=== PATIENT | male | born 1950 | race Caucasian/White ===

== ENCOUNTER 2016-09-10 11:06 | Inpatient (IN) ==
[2016-09-10] MEDS ORDERED: 0.9 % Sodium Chloride 1,000 ML IV ONE (11:30)
--- NOTE | 2016-09-10 11:33 | Emergency Department Note ---
Disposition Clinical Impression: Hyponatremia Disposition: Admitted As Inpatient Condition: Fair Referrals: Kelsi Spivey CNP [Primary Care Provider] - Forms: Work/School Release, ED Satisfaction Letter Time of Disposition: 13:40 General Adult HPI - General Chief complaint: ED General Medical Stated complaint: general illness Time Seen by Provider: 09/10/16 11:21 Source: EMS Limitations: no limitations Nursing Notes Reviewed: Yes Vital Signs Reviewed: Yes - History of Present Illness HPI Narrative: 66-year-old male brought to the ED with generalized weakness. This been ongoing for the past week. He states he cannot sleep. He is sleepy all the time. He has no appetite. He was recently started on a anti-diabetes medication but has not started it. No vomiting. He complains of mild headache. No focal numbness weakness Pain Scale: 5 - Related Data Home Medications Medication Instructions Recorded Confirmed Albuterol Sulfate [Ventolin Hfa] 18 gm IH DAILY 09/10/16 09/10/16 Atorvastatin [Lipitor] 40 mg PO HS 09/10/16 09/10/16 Ibuprofen [Motrin] 800 mg PO DAILY 09/10/16 09/10/16 Losartan/HCTZ [Hyzaar 50-12.5 1 each PO DAILY 09/10/16 09/10/16 Tablet] Metformin [Glucophage] 500 mg PO 0800 09/10/16 09/10/16 Pyridoxine HCl [Vitamin B-6] 50 mg PO HS 09/10/16 09/10/16 Allergies Allergy/AdvReac Type Severity Reaction Status Date / Time No Known Allergies Allergy Verified 09/10/16 11:18 All systems ED: reviewed and negative except as stated. Constitutional: Reports: weakness. Denies: fever, chills, weight change ENT ED: Denies: ear pain, throat pain, dental pain, hearing loss, epistaxis, congestion, dysphagia Cardiovascular: Denies: chest pain, palpitations, dyspnea on exertion, edema, syncope Respiratory: Denies: cough, dyspnea, wheezes, hemoptysis, stridor Gastrointestinal: Denies: abdominal pain, nausea, vomiting, diarrhea, constipation, hematemesis, melena, hematochezia Genitourinary: Denies: urgency, dysuria, frequency, hematuria Musculoskeletal: Denies: back pain, neck pain, arthralgia, myalgia Integumentary: Denies: rash, abrasion, lesions Neurological: Reports: headache, weakness Psychiatric: Reports: auditory hallucinations. Denies: anxiety, depression, suicidal thoughts, homicidal thoughts, visual hallucinations Endocrine: Reports: fatigue Allergic/Immunologic: Reports: itchy eyes Past Medical History - Past Medical History Medical history: Reports: COPD, coronary artery disease, diabetes, hyperlipidemia, hypertension - Social History Smoking Status: Current every day smoker Smokeless Tobacco Status: No Alcohol use: Reports: none Drug use: Reports: none Physical Exam - General Limitations: no limitations General appearance: alert, in no apparent distress - Eye Eye exam: Present: conjunctival injection - ENT ENT exam: other (Lesions in his tongue consistent with him biting it.) - Neck Neck exam: Present: normal inspection, full ROM, trachea midline - Respiratory Respiratory exam: Present: normal lung sounds bilaterally - Cardiovascular Cardiovascular exam: Present: regular rate, normal rhythm, normal heart sounds - Abdominal Exam Abdominal exam: Present: soft, Non-Tender. Absent: tenderness, distention, guarding, rebound, rigidity - Extremities Exam Extremities exam: Present: normal inspection, full ROM. Absent: tenderness, pedal edema - Neurological Exam Neurological exam: Present: alert - Psychiatric Psychiatric exam: Present: flat affect - Skin Skin exam: Present: warm, dry, intact, normal color Course Vital Signs Temperature 98.5 F 09/10/16 11:12 Pulse Rate 84 09/10/16 11:12 Respiratory Rate 18 09/10/16 11:12 Blood Pressure 164/73 09/10/16 11:12 O2 Sat by Pulse Oximetry 98 09/10/16 11:12 Temperature 98.5 F 09/10/16 11:12 Pulse Rate 84 09/10/16 11:12 Respiratory Rate 18 09/10/16 11:12 Blood Pressure 164/73 09/10/16 11:12 O2 Sat by Pulse Oximetry 98 09/10/16 11:12 Oxygen Delivery Oxygen Delivery Nasal Cannula Medical Decision Making - MDM Narrative Medical decision making narrative: Diagnosis. Hyponatremia. Dehydration. Tongue laceration ED course 0.9 normal saline was initiated. Viscous lidocaine was given for the tongue. Toradol 30 IV given. Unasyn initiated for possible tongue infection Patient will be admitted for observation to correct electrolyte abnormality. - Lab Data Result diagrams: 09/10/16 11:36 09/10/16 11:36 Lab Results 09/10/16 09/10/1617 Range/Units 11:36 11:36 11:36 WBC 11.3 H (4.3-11.1) K/mcL RBC 4.48 (4.19-5.50) M/mcL Hgb 14.4 (12.9-16.9) g/dL Hct 38.7 (37.5-50.1) % MCV 86.4 (83.0-100.0) fL MCH 32.1 (28.0-33.3) pg MCHC 37.2 H (31.6-35.5) g/dL RDW 11.9 (11.5-14.5) % Plt Count 212 (140-400) K/mcL MPV 8.7 L (9.4-12.4) fL Immature Gran % 0.4 (0-4) % Seg Neutrophils % 78.6 % Lymphocytes % 13.3 % Monocytes % 6.6 % Eosinophils % 0.8 % Basophils % 0.3 % Neutrophils # 8.9 (1.6-8.9) K/mcL Lymphocytes # 1.5 (0.6-4.6) K/mcL Monocytes # 0.8 (0.0-1.3) K/mcL Eosinophils # 0.1 (0.0-0.6) K/mcL Basophils # 0.0 (0.0-0.2) K/mcL PT 13.0 H (9.4-12.1) Seconds INR 1.2 APTT 29.2 (26.0-36.0) Seconds Sodium 118 L* (136-145) mEq/L Potassium 4.2 (3.5-4.5) mEq/L Chloride 86 L (98-109) mEq/L Carbon Dioxide 19 (19-29) mEq/L BUN 8 (8-26) mg/dL Creatinine 0.68 L (0.72-1.25) mg/dL Est GFR ( Amer) > 60 (> 60) Est GFR (Non-Af Amer) > 60 (> 60) BUN/Creatinine Ratio 12 (6-26) Glucose 121 H (70-99) mg/dL Calculated Osmolality 246 L (280-300) Calcium 8.9 (8.6-10.8) mg/dL Total Bilirubin 1.3 H (0.2-1.2) mg/dL Direct Bilirubin 0.6 H (0.0-0.5) mg/dL Indirect Bilirubin 0.7 (0.0-1.2) mg/dL AST 58 H (5-34) Units/L ALT 33 (0-55) Units/L Alkaline Phosphatase 118 (38-126) Units/L Troponin I (0-0.03) ng/mL B-Natriuretic Peptide (0-100) pg/mL Serum Total Protein 7.3 (6.0-8.3) g/dL Albumin 3.5 (3.5-5.0) g/dL Globulin 3.8 H (2.4-3.5) g/dL Albumin/Globulin Ratio 0.9 L (1.1-2.2) Ethyl Alcohol (0-10) mg/dL 09/10/16 09/10/16 09/10/16 Range/Units 11:36 11:36 11:36 WBC (4.3-11.1) K/mcL RBC (4.19-5.50) M/mcL Hgb (12.9-16.9) g/dL Hct (37.5-50.1) % MCV (83.0-100.0) fL MCH (28.0-33.3) pg MCHC (31.6-35.5) g/dL RDW (11.5-14.5) % Plt Count (140-400) K/mcL MPV (9.4-12.4) fL Immature Gran % (0-4) % Seg Neutrophils % % Lymphocytes % % Monocytes % % Eosinophils % % Basophils % % Neutrophils # (1.6-8.9) K/mcL Lymphocytes # (0.6-4.6) K/mcL Monocytes # (0.0-1.3) K/mcL Eosinophils # (0.0-0.6) K/mcL Basophils # (0.0-0.2) K/mcL PT (9.4-12.1) Seconds INR APTT (26.0-36.0) Seconds Sodium (136-145) mEq/L Potassium (3.5-4.5) mEq/L Chloride (98-109) mEq/L Carbon Dioxide (19-29) mEq/L BUN (8-26) mg/dL Creatinine (0.72-1.25) mg/dL Est GFR ( Amer) (> 60) Est GFR (Non-Af Amer) (> 60) BUN/Creatinine Ratio (6-26) Glucose (70-99) mg/dL Calculated Osmolality (280-300) Calcium (8.6-10.8) mg/dL Total Bilirubin (0.2-1.2) mg/dL Direct Bilirubin (0.0-0.5) mg/dL Indirect Bilirubin (0.0-1.2) mg/dL AST (5-34) Units/L ALT (0-55) Units/L Alkaline Phosphatase (38-126) Units/L Troponin I 0.01 (0-0.03) ng/mL B-Natriuretic Peptide 32 (0-100) pg/mL Serum Total Protein (6.0-8.3) g/dL Albumin (3.5-5.0) g/dL Globulin (2.4-3.5) g/dL Albumin/Globulin Ratio (1.1-2.2) Ethyl Alcohol < 10 (0-10) mg/dL
[2016-09-10 11:44] LABS: Basophils % 0.3 %; Eosinophils # 0.1 K/mcL (0.0-0.6); Eosinophils % 0.8 %; Hematocrit 38.7 % (37.5-50.1); Hemoglobin 14.4 g/dL (12.9-16.9); Immature Granulocytes % 0.4 % (0-4); Lymphocytes # 1.5 K/mcL (0.6-4.6); Lymphocytes % 13.3 %; Mean Corpuscular Hemoglobin 32.1 pg (28.0-33.3); Mean Corpuscular Volume 86.4 fL (83.0-100.0); Mean Platelet Volume 8.7 fL (9.4-12.4); Monocytes # 0.8 K/mcL (0.0-1.3); Monocytes % 6.6 %; Neutrophils # 8.9 K/mcL (1.6-8.9); Platelet Count 212 K/mcL (140-400); Red Blood Count 4.48 M/mcL (4.19-5.50); Red Cell Distribution Width 11.9 % (11.5-14.5); Segmented Neutrophils % 78.6 %
[2016-09-10 11:48] LABS: INR 1.2
[2016-09-10 11:51] LABS: Activated Partial Thrombo Time 29.2 Seconds (26.0-36.0)
[2016-09-10 11:59] LABS: Alanine Aminotransferase 33 Units/L (0-55); Albumin 3.5 g/dL (3.5-5.0); Albumin/Globulin Ratio 0.9 (1.1-2.2); Alkaline Phosphatase 118 Units/L (38-126); Aspartate Amino Transferase 58 Units/L (5-34); BUN/Creatinine Ratio 12 (6-26); Bilirubin,Direct 0.6 mg/dL (0.0-0.5); Bilirubin,Indirect 0.7 mg/dL (0.0-1.2); Bilirubin,Total 1.3 mg/dL (0.2-1.2); Blood Urea Nitrogen 8 mg/dL (8-26); Calcium 8.9 mg/dL (8.6-10.8); Carbon Dioxide 19 mEq/L (19-29); Chloride 86 mEq/L (98-109); Globulin 3.8 g/dL (2.4-3.5); Glucose 121 mg/dL (70-99); Osmolality,Calculated 246 (280-300); Potassium 4.2 mEq/L (3.5-4.5); Total Protein 7.3 g/dL (6.0-8.3); eGFR For African Americans > 60 (> 60); eGFR For Non-African Americans > 60 (> 60)
[2016-09-10 12:06] LABS: Mean Corpuscular HGB Conc 37.2 g/dL (31.6-35.5)
[2016-09-10 12:07] LABS: Sodium 118 mEq/L (136-145)
[2016-09-10] MEDS ORDERED: Lidocaine Viscous Oral Soln 15 ML SOLUTION MM STA ×2 (12:36→13:09)
[2016-09-10] MEDS ORDERED: Ketorolac 30 MG/ML VIAL IV STA ×2 (12:36→13:09)
[2016-09-10] MEDS ORDERED: Ampicillin/Sulbactam 3,000 MG in 0.9 % Sodium Chloride Mini Bag 100 ML IVPB ONE ×2 (12:36→13:09)
[2016-09-10] MEDS ORDERED: Lidocaine Viscous Oral Soln 15 ML SOLUTION MM PRN (12:43)
[2016-09-10] MEDS ORDERED: Albuterol 2.5 MG/3 ML NEBULIZER IH PRN (13:40)
--- NOTE | 2016-09-10 14:30 | Electrocardiograph Report ---
[address] [address] Test Date: 2016-09-10 Pat Name: Gorge Hadley Department: 2000 Room: 113 Gender: M [employer]: : 1950 Requested By: Shreyas Phan Order Number: [id number] Reading MD: Nick Murphy Measurements Intervals [place] Rate: 81 P: -50 ID: [id number] QRS: 90 QRSD: 88 T: 77 QT: 387 QTc: 424 Interpretive Statements ECTOPIC ATRIAL RHYTHM ABNORMAL RHYTHM ECG Electronically Signed On 09-10-2016 14:28:56 EST by Nick Murphy
--- NOTE | 2016-09-10 14:42 | Internal Med History&Physical ---
Date of Encounter: 09/10/16 Time of Encounter: 14:40 Assessment and Plan (1) Lesion of tongue Current visit: Yes Status: Acute (2) Hyponatremia Current visit: Yes Status: Acute (3) CHF (congestive heart failure) Current visit: Yes Status: Acute Qualifiers: Congestive heart failure type: unspecified congestive heart failure type Congestive heart failure chronicity: unspecified congestive heart failure chronicity Qualified Code(s): I50.9 - Heart failure, unspecified Internal Medicine - H&P: HPI Chief complaint: Patient presented with a chief complaint diastolic heart. States he bit it Admitted From: Emergency Dept Plans for Post Hospital Care: Home History of present illness: Mr. Hadley is a 66 year old male Patient states he has medical problems was recently given a prescription for diabetic control but has not started taking it yet. Patient denies seizures she had bit his tongue and has 2 lesions of the lateral aspects of his distal to Past Med Surg Social Fam HX - Past Medical History Medical history: CHF, COPD, coronary artery disease, diabetes, hyperlipidemia, hypertension - Social History Smoking Status: Current every day smoker Smokeless Tobacco Status: No Alcohol use: none Drug use: none Internal Medicine - H&P: Meds Albuterol Sulfate [Ventolin Hfa] 18 gm IH DAILY 09/10/16 [History] Atorvastatin [Lipitor] 40 mg PO HS 09/10/16 [History] Ibuprofen [Motrin] 800 mg PO DAILY 09/10/16 [History] Losartan/HCTZ [Hyzaar 50-12.5 Tablet] 1 each PO DAILY 09/10/16 [History] Metformin [Glucophage] 500 mg PO 0800 09/10/16 [History] Pyridoxine HCl [Vitamin B-6] 50 mg PO HS 09/10/16 [History] Allergies No Known Allergies Allergy (Verified 09/10/16 11:18) All Systems PM: A 10-system review of systems was performed and is negative for pertinent findings except as documented above in the HPI. - Constitutional Vitals: Temp Pulse Resp BP Pulse Ox 97.6 F 72 16 163/71 97 09/10/16 13:32 09/10/16 13:32 09/10/16 13:32 09/10/16 13:32 09/10/16 13:32 - Head Head exam: Present: atraumatic, normocephalic - Expanded ENT Exam Mouth exam: Present: tongue elevation (Patient has a 1 cm lesion on both lateral aspects of his anterior down. He states is very sore hard E and probably has not been taking his medication appropriately) - Respiratory Respiratory exam: Present: CTAB. Absent: accessory muscle use, rales, rhonchi, wheezes - Cardiovascular Cardiovascular exam: Present: RRR, +S1, +S2. Absent: diastolic murmur, gallop, rubs, systolic murmur - Expanded Lower Extremities Exam Lower Leg exam: Present: swelling (There is no pretibial edema at this time) Internal Med - H&P Results - Labs CBC & Chem 7: 09/10/16 11:36 09/10/16 11:36 Labs: Patient has a extremely low sodium. Right now fasting gas he could be dilutional
--- NOTE | 2016-09-10 14:49 | Internal Med Progress Note ---
Date of Encounter: 09/10/16 - Assessment and plan (1) Lesion of tongue Current Visit: Yes Status: Acute (2) Hyponatremia Current Visit: Yes Status: Acute (3) CHF (congestive heart failure) Current Visit: Yes Status: Acute Qualifiers: Congestive heart failure type: unspecified congestive heart failure type Congestive heart failure chronicity: unspecified congestive heart failure chronicity Qualified Code(s): I50.9 - Heart failure, unspecified - Constitutional Vitals: Temp Pulse Resp BP Pulse Ox 97.6 F 72 16 163/71 97 09/10/16 13:32 09/10/16 13:32 09/10/16 13:32 09/10/16 13:32 09/10/16 13:32 Internal Medicine: Result - Labs CBC & Chem 7: 09/10/16 11:36 09/10/16 11:36 - ABG Interpretation ABG results: PT/INR, D-dimer PT 13.0 Seconds (9.4-12.1) H 09/10/16 11:36 Consult Discharge Plan - Plan Referrals: Kelsi Spivey CNP [Primary Care Provider] -
[2016-09-10] MEDS: *HR* Metformin 500 MG TABLET PO SCH (15:33)
[2016-09-10] MEDS: Magic Mouthwash 10 ML UD Cup PO SCH ×2 (15:34→19:47)
[2016-09-10] MEDS: Losartan/HCTZ 50-12.5 TABLET PO SCH (15:34)
[2016-09-10] MEDS: 0.9 % Sodium Chloride 1,000 ML IVC SCH ×2 (15:35→23:00)
[2016-09-10] MEDS ORDERED: *HR* LORazepam 2 MG/ML VIAL IVP PRN (16:13)
[2016-09-10] MEDS ORDERED: *HR* Promethazine 25 MG/ML VIAL IVP PRN (16:13)
[2016-09-10] MEDS: Ibuprofen 400 MG TABLET PO PRN (19:50)
[2016-09-10] MEDS: Furosemide 20 MG TABLET PO SCH (19:50)
[2016-09-10] MEDS ORDERED: Ampicillin/Sulbactam 3,000 MG in 0.9 % Sodium Chloride Mini Bag 100 ML IVPB SCH (21:00)
[2016-09-10] MEDS: Ampicillin/Sulbactam 3,000 MG in 0.9 % Sodium Chloride Mini Bag 100 ML IVPB SCH (23:01)
[2016-09-11] MEDS: Nicotine 14 MG PATCH.TD24 TD SCH ×2 (00:36→08:18)
[2016-09-11 05:46] LABS: BUN/Creatinine Ratio 9 (6-26); Blood Urea Nitrogen 6 mg/dL (8-26); Calcium 8.8 mg/dL (8.6-10.8); Carbon Dioxide 24 mEq/L (19-29); Chloride 90 mEq/L (98-109); Glucose 103 mg/dL (70-99); Osmolality,Calculated 260 (280-300); Potassium 4.2 mEq/L (3.5-4.5); Sodium 126 mEq/L (136-145); eGFR For African Americans > 60 (> 60); eGFR For Non-African Americans > 60 (> 60)
[2016-09-11] MEDS: Furosemide 20 MG TABLET PO SCH (06:08)
[2016-09-11] MEDS: Ibuprofen 400 MG TABLET PO PRN (06:08)
[2016-09-11] MEDS: Ampicillin/Sulbactam 3,000 MG in 0.9 % Sodium Chloride Mini Bag 100 ML IVPB SCH (06:09)
[2016-09-11 06:21] LABS: Amylase 86 Units/L (25-125); Lipase 34 Units/L (8-78)
[2016-09-11] MEDS: 0.9 % Sodium Chloride 1,000 ML IVC SCH (06:54)
[2016-09-11] MEDS ORDERED: *HR* Enoxaparin 40 MG/0.4 ML SYRINGE SQ SCH (07:00)
[2016-09-11 07:09] VITALS: BP 177/72
[2016-09-11] MEDS: *HR* Metformin 500 MG TABLET PO SCH (08:17)
[2016-09-11] MEDS: Losartan/HCTZ 50-12.5 TABLET PO SCH ×2 (08:19→08:57)
[2016-09-11 08:23] LABS: Hemoglobin A1C 6.4 %
--- NOTE | 2016-09-11 08:23 | Internal Med Progress Note ---
Date of Encounter: 09/11/16 Time of Encounter: 08:21 - Assessment and plan (1) Alcohol abuse Current Visit: Yes Status: Chronic Assessment and plan: Continue to monitor for any withdrawal symptoms. (2) Hyponatremia Current Visit: Yes Status: Acute Assessment and plan: Sodium improved to 126 with IV fluids in diuretics. Hyponatremia likely from his long-standing alcohol abuse - Time Spent With Patient less than 15 minutes - Subjective Interval history: Feeling better today. Feel stronger. Hungry. Lessmouth pain. Complains of his chronic back pain. Hungry. No chest pain. No nausea no vomiting - Constitutional Vitals: Temp Pulse Resp BP Pulse Ox 97.3 F L 71 18 177/72 98 09/11/16 07:08 09/11/16 07:08 09/11/16 07:08 09/11/16 07:08 09/11/16 07:08 General appearance: Present: A&O X 3, morbidly obese, pleasant, no acute distress - Expanded ENT Exam Mouth exam: Present: laceration - Respiratory Respiratory exam: Present: CTAB. Absent: accessory muscle use, rales, rhonchi, wheezes - Cardiovascular Cardiovascular exam: Present: RRR, +S1, +S2. Absent: diastolic murmur, gallop, rubs, systolic murmur - GI/Abdominal GI/Abdominal exam: Present: normal bowel sounds, soft, no peritoneal signs. Absent: distended, tenderness - Extremities Exam Extremities exam: Present: warm, radial pulses palpable and symetrical. Absent : calf tenderness, cyanotic, pedal edema - Neurological Exam Neurological exam: Present: CN II-XII intact, oriented X3, no focal deficits. Absent: pronater drift, facial droop, speech deficit Internal Medicine: Result - Labs CBC & Chem 7: 09/10/16 11:36 09/11/16 05:00 Labs: BMP 09/11/16 05:00 Sodium 126 L D Potassium 4.2 Chloride 90 L Carbon Dioxide 24 BUN 6 L Creatinine 0.67 L Glucose 103 H Calcium 8.8 - ABG Interpretation ABG results: PT/INR, D-dimer PT 13.0 Seconds (9.4-12.1) H 09/10/16 11:36 - VTE Documentation of Mechanical Device: Graduated compression elastic hosiery Consult Discharge Plan - Plan Referrals: Kelsi Spivey, [employer] [Primary Care Provider] -
[2016-09-11] MEDS: Magic Mouthwash 10 ML UD Cup PO SCH (08:56)
[2016-09-11] MEDS ORDERED: Vitamin B Complex/Vit C/Vit E 1 EACH TABLET PO SCH (09:00)
[2016-09-11] MEDS ORDERED: Folic Acid 1 MG TABLET PO SCH (09:00)
[2016-09-11] MEDS ORDERED: Thiamine (B-1) 100 MG TABLET PO SCH (09:00)
--- NOTE | 2016-09-11 13:35 | Discharge Summary ---
Date of Encounter: 09/11/16 Time of Encounter: 13:33 - Discharge Diagnosis (1) Lesion of tongue Priority: Primary Status: Acute (2) Hyponatremia Priority: Secondary Status: Acute Comments: The sodium level is better (3) CHF (congestive heart failure) Priority: Secondary Status: Acute Comments: The age of his improved Qualifiers: Congestive heart failure type: unspecified congestive heart failure type Congestive heart failure chronicity: unspecified congestive heart failure chronicity Qualified Code(s): I50.9 - Heart failure, unspecified - Discharge Medications Home Medications: Albuterol Sulfate [Ventolin Hfa] 18 gm IH DAILY 09/10/16 [History] Atorvastatin [Lipitor] 40 mg PO HS 09/10/16 [History] Ibuprofen [Motrin] 800 mg PO DAILY 09/10/16 [History] Losartan/HCTZ [Hyzaar 50-12.5 Tablet] 1 each PO DAILY 09/10/16 [History] Metformin [Glucophage] 500 mg PO 0800 09/10/16 [History] Pyridoxine HCl [Vitamin B-6] 50 mg PO HS 09/10/16 [History] Allergies/Adverse Reactions: Allergies No Known Allergies Allergy (Verified 09/10/16 11:18) Date of admission: 09/10/16 18:45 Primary care physician: Kelsi Spivey CNP Consults: 09/11/16 03:02 Consult to Psychology [CONS] Routine Consulting Provider: Lin Monroy Reason for Consult: Patient had made a few statements while performing the CIWA for alcohol withdrawal that he has been seeing people that happen to appear in his home (and they won't talk to him), then they disappear. Patient states this has happened once last week and once the night of 09/10/16. Call Completed: No Discharging clinician: Riley Barboza Anticipated date of discharge: 09/11/16 - Patient Status Disposition: Home, Self-Care Condition: Good Functional capacity at discharge: independent ambulation Overall status at discharge: patient is back to baseline - Discharge Instructions Follow Up With: Kelsi Spivey CNP [Primary Care Provider] - - Diet and Activity Activity: other Diet: advance to your usual diet (Areas the discharge order the patient left AMA ) Interval History: Patient was admitted from the emergency room initially because he had tongue pain. and possibly little CHF Hospital course: Mr. Hadley is a 66 year old male The sodium is improved breathing is fine and the patient's sister leaving and signed out AMA. He did be with our staff psychologist who felt that he was no risk to himself or anyone else. He was to - Time Spent with Patient Total time spent providing and/or coordinating discharge services: - Constitutional Vitals: Temp Pulse Resp BP Pulse Ox 97.3 F L 71 18 177/72 98 09/11/16 07:08 09/11/16 07:08 09/11/16 07:08 09/11/16 07:08 09/11/16 07:08 General appearance: Present: A&O X 3, morbidly obese, pleasant, no acute distress - Head Head exam: Present: atraumatic, normal inspection, normocephalic - Neck Neck exam general surgery: Present: supple, trachea midline. Absent: lymphadenopathy - Respiratory Respiratory exam: Present: CTAB. Absent: accessory muscle use, rales, rhonchi, wheezes - Cardiovascular Cardiovascular exam: Present: RRR, +S1, +S2. Absent: diastolic murmur, gallop, rubs, systolic murmur - VTE Documentation of Mechanical Device: Graduated compression elastic hosiery
--- NOTE | 2016-09-11 14:26 | Psychological Evaluation ---
Date of Encounter: 09/11/16 Time of Encounter: 11:30 History of Present Illness History of present illness: Mr. Hadley is a 66 year old male admitted to [facility] after he bit his tongue several days ago while sleeping. He denies a history of seizures. He was seen on this date to assess his medical decision-making capacity as he is requesting to be discharged from the hospital. Past Medical History Medical history: Significant for COPD, coronary artery disease, diabetes, HTN, congestive heart failure and hyperlipidemia - Psychiatric History Additional Psychiatric History: Mr. Hadley denied history of psychiatric hospitalization or mental health counseling. He also denied current or past suicidal ideation, intentions, plans or attempts. Home Medications and Allergies Albuterol Sulfate [Ventolin Hfa] 18 gm IH DAILY 09/10/16 [History] Atorvastatin [Lipitor] 40 mg PO HS 09/10/16 [History] Ibuprofen [Motrin] 800 mg PO DAILY 09/10/16 [History] Losartan/HCTZ [Hyzaar 50-12.5 Tablet] 1 each PO DAILY 09/10/16 [History] Metformin [Glucophage] 500 mg PO 0800 09/10/16 [History] Pyridoxine HCl [Vitamin B-6] 50 mg PO HS 09/10/16 [History] Allergies No Known Allergies Allergy (Verified 09/10/16 11:18) Social History - Social History Social History: Mr. Hadley is and has 5 children (ranging in age from 35 to 23). He lives alone. His friend (Shelley) was present during this interview. 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 He reported that his typical days consists of "cleaning the house". - Tobacco Use Smoking Status: Current every day smoker - Alcohol Use Alcohol Use: heavy (Mr. Hadley reported that he consumes 6-12 beers daily. He has a history of multiple DUIs and spent 3 days in [facility]. He acknowledged that he has been told that his alcohol consumption is a concern. ) Cognitive/Emotional Assessment - Cognitive Ability Additional Findings: Mr. Hadley was alert, attentive and fully oriented. He was sitting on the edge of the bed and stated that he is ready to be discharged. Despite wanting to leave quickly, he cooperated fully with this interview. Speech was muffled but fluent. He was asked to repeat some statements/comments when he spoke too rapidly. He was able to identify and express his wants and needs. Auditory comprehension appeared intact for conversational information. Thought processes were logical and goal-directed. Mood appeared somewhat agitated but he answered all questioned asked of him. He was able to explain circumstances surrounding his admission and reported that his tongue felt much better after receiving a numbing agent and IV liquids. He was able to list other medical conditions he has and acknowledged that he takes his medications as prescribed but does skip doses on occasion. He is aware that this poses a risk of " or stroke". - Emotional Status Additional Findings: Mr. Hadley reported that he has been having visual hallucinations at home and in the hospital. He reported that he did not sleep well last night because he could hear "snoring" by the "person" in his room. He readily acknowledged that others cannot see or hear the individuals he sees and he recognizes that they are hallucinations. He denied that the visual/auditory hallucinations are saying or behaving in threatening manner towards him but stated that they are likely connected to "the devil or his disciples". He does not believe they are associated with his alcohol consumption. Assessment & Plan - Treatment Plan Treatment Plan/Recommendations: Mr. Hadley was seen to assess his medical decision-making capacity. He presented as oriented, able to articulate his wants/needs and able to explain why he is currently in the hospital but desires to be discharged home. He has a number of chronic health issues (HTN, diabetes, coronary artery disease, hyperlipidemia and COPD) and is reportedly under physician care. He has a history of alcohol abuse and minimized that this is a problem. Emotionally, he reported that he is having visual and auditory hallucinations but recognizes that they are "not real" and are unseen by others. Mr. Hadley appears to have medical decision making capacity and is requesting to be discharged home. Procedures - Session Time Session Start Time: 11:30 Session Stop Time: 12:00
== END 2016-09-11 12:10 | disposition left against medical advice (07) | DRG 641 ==
LOC: INPGRE 11:06 → EMEROOGRE 11:06 → INPGRE 13:10
PROVIDERS: ADMIT Internal Medicine; ATTEND Internal Medicine